=== PATIENT | female | born 1975 | race Caucasian/White ===

== ENCOUNTER → 2024-08-16 12:38 | Outpatient (REF) | payer OTHER, SELFPAY | LOC: HWRAD 12:38 | PROVIDERS: ATTENDING PHYSICIAN Family Medicine | DX: Z12.31 Encounter for screening mammogram for malignant neoplasm of breast (principal); R74.8 Abnormal levels of other serum enzymes; M25.551 Pain in right hip | CPT/HCPCS: 73502; 76700; 77063; 77067 ==

== ENCOUNTER → 2025-04-11 14:02 | Outpatient (REF) | payer OTHER, SELFPAY | LOC: MRI 14:02 | PROVIDERS: ATTENDING PHYSICIAN Internal Medicine; FAMILY PHYSICIAN Family Medicine | DX: R74.01 Elevation of levels of liver transaminase levels (principal); K76.0 Fatty (change of) liver, not elsewhere classified | CPT/HCPCS: 74183; 76391; A9575 ==